=== PATIENT | female | born 1965 | race Caucasian/White ===

== ENCOUNTER 2021-07-07 00:39 | Observation (INO) ==
[2021-07-07] MEDS ORDERED: Ondansetron 4 MG/2 ML VIAL IVP PRN ×2 (08:11→10:12)
[2021-07-07] MEDS ORDERED: Famotidine 20 MG/2 ML VIAL IVP ONE (08:12)
[2021-07-07] MEDS ORDERED: clonazePAM 1 MG TABLET PO SCH (10:09)
[2021-07-07] MEDS ORDERED: Ibuprofen 400 MG TABLET PO PRN ×2 (10:12→14:03)
[2021-07-07] MEDS ORDERED: Melatonin 3 MG TABLET PO PRN (10:12)
[2021-07-07] MEDS ORDERED: Mag Hydrox/Al Hydrox/Simeth 30 ML UDC PO PRN (10:12)
[2021-07-07] MEDS ORDERED: Naloxone 0.4 MG/ML INJ IVP PRN (10:12)
[2021-07-07] MEDS ORDERED: MOM Conc 10 ML UD.LIQ PO PRN (10:12)
[2021-07-07] MEDS ORDERED: Metoprolol XL (24 HR) Succ 50 MG TAB.ER.24H PO SCH ×2 (10:15→21:00)
[2021-07-07] MEDS ORDERED: hydrOXYzine pamoate 25 MG CAPSULE PO SCH (10:15)
[2021-07-07] MEDS: Aspirin Enteric Coated 81 MG Tablet PO SCH (11:18)
[2021-07-07] MEDS: amLODIPine 5 MG TABLET PO SCH (11:19)
[2021-07-07] MEDS: Acetaminophen 325 MG TABLET PO PRN ×2 (11:19→20:26)
[2021-07-07] MEDS: Loratadine 10 MG TABLET PO SCH (11:19)
[2021-07-07] MEDS: Cholecalciferol (D-3) 1,000 UNIT (25MCG) TABLET PO SCH (11:19)
[2021-07-07] MEDS: FLUoxetine 20 MG CAPSULE PO SCH ×2 (11:19→20:26)
[2021-07-07 13:28] LABS: Bilirubin,Urine Negative (Negative); Blood,Urine Negative (Negative); Clarity,Urine Clear (Clear); Color,Urine Yellow (Yellow); Glucose,Urine (UA) Normal (Normal); Ketones,Urine Negative (Negative); Leukocyte Esterase,Urine Trace (Negative); Nitrite,Urine Negative (Negative); Protein,Urine Negative (Neg-Trace); Specific Gravity,Urine 1.025 (1.010-1.025); Urobilinogen,Urine Normal (Normal)
[2021-07-07 15:17] LABS: Squamous Epithelial Cell,Urine Many per hpf (None-Few); WBC,Urine 0-3 per hpf (0-3)
[2021-07-07 15:37] LABS: Alanine Aminotransferase 33 Units/L (7-52); Albumin 3.4 g/dL (3.5-5.7); Albumin/Globulin Ratio 1.2 (1.1-2.2); Alkaline Phosphatase 65 Units/L (34-104); Aspartate Amino Transferase 23 Units/L (13-39); BUN/Creatinine Ratio 10 (6-26); Bilirubin,Total 0.5 mg/dL (0.3-1.0); Blood Urea Nitrogen 9 mg/dL (6-20); Calcium 9.1 mg/dL (8.6-10.3); Carbon Dioxide 25 mEq/L (23-29); Chloride 102 mEq/L (98-107); Globulin 2.9 g/dL (2.4-3.5); Glucose 102 mg/dL (70-105); Osmolality,Calculated 283 (280-300); Sodium 137 mEq/L (136-145); Total Protein 6.3 g/dL (6.4-8.9); eGFR For African Americans > 60 (> 60); eGFR For Non-African Americans > 60 (> 60)
[2021-07-07] MEDS ORDERED: Ipratropium/Albuterol Neb 3 ML IH SCH (16:00)
[2021-07-07] MEDS: Budesonide/Formoterol 160/4.5 1 PUFF INH IH SCH ×2 (16:02→20:29)
[2021-07-07] MEDS: Ipratropium/Albuterol Neb 3 ML IH SCH ×3 (16:17→23:51)
[2021-07-07] MEDS: clonazePAM 0.5 MG TABLET PO SCH (17:28)
[2021-07-07] MEDS: hydrOXYzine pamoate 25 MG CAPSULE PO SCH (17:50)
[2021-07-07 20:07] LABS: Adenovirus Not Detected (Not Detect); Bordetella Pertussis Not Detected (Not Detect); Chlamydophila pneumoniae Not Detected (Not Detect); Coronavirus 229E Not Detected (Not Detect); Coronavirus HKU1 Not Detected (Not Detect); Coronavirus NL63 Not Detected (Not Detect); Coronavirus OC43 Not Detected (Not Detect); Human Metapneumovirus Not Detected (Not Detect); Human Rhinovirus/Enterovirus DETECTED (Not Detect); Influenza A Subtype 2009 H1 Not Detected (Not Detect); Influenza B Not Detected (Not Detect); Mycoplasma pneumoniae Not Detected (Not Detect); Parainfluenza Virus 1 Not Detected (Not Detect); Parainfluenza Virus 2 Not Detected (Not Detect); Parainfluenza Virus 3 Not Detected (Not Detect); Parainfluenza Virus 4 Not Detected (Not Detect); Respiratory Syncytial Virus Not Detected (Not Detect); SARS-CoV-2 Not Detected (Not Detect)
[2021-07-07] MEDS: Doxycycline 100 MG CAPSULE PO SCH (20:24)
[2021-07-07] MEDS: Ondansetron ODT 4 MG TAB.RAPDIS SL PRN (20:27)
[2021-07-07] MEDS ORDERED: Mirtazapine 15 MG TABLET PO SCH (21:00)
[2021-07-07] MEDS ORDERED: clonazePAM 0.5 MG TABLET PO SCH (21:00)
[2021-07-07 21:29] LABS: Adenovirus F 40/41 PCR Not detected (Not detect); Astrovirus PCR Not detected (Not detect); C.difficile Toxin A/B Gene PCR Not detected (Not detect); Campylobacter by PCR Not detected (Not detect); Cryptosporidium by PCR Not detected (Not detect); Cyclospora cayetanensis PCR Not detected (Not detect); Entamoeba histolytica PCR Not detected (Not detect); Enteroaggregative E.coli(EAEC) Not detected (Not detect); Enteropathogenic E.coli(EPEC) Not detected (Not detect); Enterotoxigenic E.coli (ETEC) Not detected (Not detect); Giardia lamblia PCR Not detected (Not detect); Norovirus GI/GII PCR Not detected (Not detect); Plesiomonas shigelloides PCR Not detected (Not detect); Rotavirus A PCR Not detected (Not detect); Salmonella PCR Not detected (Not detect); Sapovirus PCR Not detected (Not detect); Shig/EnteroinvasiveE coli EIEC Not detected (Not detect); Shigalike tox-prod E coli STEC Not detected (Not detect); Vibrio PCR Not detected (Not detect); Vibrio cholerae PCR Not detected (Not detect); Yersinia enterocolitica PCR Not detected (Not detect)
[2021-07-08] MEDS: clonazePAM 0.5 MG TABLET PO SCH ×2 (00:32→08:49)
[2021-07-08] MEDS: Ipratropium/Albuterol Neb 3 ML IH SCH ×3 (04:16→11:41)
[2021-07-08 07:25] LABS: Basophils % 0.1 %; Eosinophils % 0.1 %; Hematocrit 35.1 % (35.3-44.9); Hemoglobin 11.2 g/dL (11.5-15.4); Immature Granulocytes % 0.7 % (0-4); Lymphocytes # 2.1 K/mcL (0.6-4.6); Lymphocytes % 24.8 %; Mean Corpuscular HGB Conc 31.9 g/dL (31.6-35.5); Mean Corpuscular Hemoglobin 30.9 pg (28.0-33.3); Mean Corpuscular Volume 96.7 fL (83.0-100.0); Mean Platelet Volume 10.1 fL (9.4-12.4); Monocytes # 0.8 K/mcL (0.0-1.3); Monocytes % 9.7 %; Neutrophils # 5.3 K/mcL (1.6-8.9); Platelet Count 231 K/mcL (140-400); Red Blood Count 3.63 M/mcL (3.82-4.97); Red Cell Distribution Width 14.6 % (11.5-14.5); Segmented Neutrophils % 64.6 %; White Blood Count 8.3 K/mcL (4.3-11.1)
[2021-07-08] MEDS: Budesonide/Formoterol 160/4.5 1 PUFF INH IH SCH (07:37)
[2021-07-08 08:01] LABS: Alanine Aminotransferase 27 Units/L (7-52); Albumin 3.1 g/dL (3.5-5.7); Albumin/Globulin Ratio 1.2 (1.1-2.2); Alkaline Phosphatase 54 Units/L (34-104); Aspartate Amino Transferase 18 Units/L (13-39); BUN/Creatinine Ratio 12 (6-26); Bilirubin,Total 0.4 mg/dL (0.3-1.0); Blood Urea Nitrogen 10 mg/dL (6-20); Calcium 8.7 mg/dL (8.6-10.3); Carbon Dioxide 29 mEq/L (23-29); Chloride 106 mEq/L (98-107); Globulin 2.6 g/dL (2.4-3.5); Glucose 98 mg/dL (70-105); Magnesium 1.8 mg/dL (1.6-2.6); Osmolality,Calculated 291 (280-300); Phosphorous 3.7 mg/dL (2.7-4.5); Potassium 3.8 mEq/L (3.5-5.1); Sodium 141 mEq/L (136-145); Total Protein 5.7 g/dL (6.4-8.9); eGFR For African Americans > 60 (> 60); eGFR For Non-African Americans > 60 (> 60)
[2021-07-08] MEDS: Loratadine 10 MG TABLET PO SCH (08:48)
[2021-07-08] MEDS: amLODIPine 5 MG TABLET PO SCH (08:48)
[2021-07-08] MEDS: FLUoxetine 20 MG CAPSULE PO SCH (08:48)
[2021-07-08] MEDS: hydrOXYzine pamoate 25 MG CAPSULE PO SCH (08:48)
[2021-07-08] MEDS: Cholecalciferol (D-3) 1,000 UNIT (25MCG) TABLET PO SCH (08:48)
[2021-07-08] MEDS: Doxycycline 100 MG CAPSULE PO SCH (08:49)
[2021-07-08] MEDS: Aspirin Enteric Coated 81 MG Tablet PO SCH (08:49)
[2021-07-08] MEDS ORDERED: Nicotine 21 MG PATCH.TD24 TD SCH (09:00)
[2021-07-08] MEDS: Ondansetron ODT 4 MG TAB.RAPDIS SL PRN (09:02)
[2021-07-08] MEDS: Acetaminophen 325 MG TABLET PO PRN (09:03)
[2021-07-08 11:39] VITALS: BP 100/70; PULSE 70; TEMP 97.9
[2021-07-08 11:46] VITALS: RESP 20; O2SAT 95
[2021-07-08] MEDS ORDERED: hydrOXYzine pamoate 25 MG CAPSULE PO SCH (17:45)
== END 2021-07-08 15:40 | disposition home or self-care (01) ==
LOC: INPGRE
PROVIDERS: ADMIT Family Medicine; ATTEND Family Medicine